=== PATIENT | female | born 1960 | race Caucasian/White ===

== ENCOUNTER → 2020-06-23 17:16 | Outpatient (CLI) | payer OTHER, SELFPAY ==
--- NOTE | ~2020-06-23 | DEXA_ITS ---
Bone Density Report Name: Elsa Arias Age: 59 Sex: Female Ethnicity: White Date of : 1960 Indication: postmenopausal; screening for osteoporosis; Referring Provider: REG CHANEY Study: Bone densitometry was performed. Exam Date: June 23, 2020 Accession number: [id number] Bone Density: Region BMD T-score Z-score Classification AP Spine (L1-L4) 1.055 0.1 1.3 Normal Femoral Neck (Left) 0.791 -0.5 0.6 Normal Total Hip (Left) 0.987 0.4 1.2 Normal Femoral Neck (Right) 0.767 -0.7 0.4 Normal Total Hip (Right) 0.992 0.4 1.2 Normal Total Hip Mean 0.990 0.4 1.2 Normal World Health Organization criteria for BMD impression classify patients as: Normal (T-score at or above -1.0), Osteopenia (T-score between -1.0 and -2.5), or Osteoporosis (T-score at or below -2.5). 10-year Fracture Risk: FRAX not reported because: All T-scores for Spine Total, Hip Total, Femoral Neck at or above -1.0 Previous Exams: Region Exam Age BMD T-score BMD Change BMD Change Date g/cm2 vs Baseline vs Previous AP Spine(L1-L4) 06/23/2020 59 1.055 0.1 -0.071* 0.007 06/20/2017 56 1.049 0.0 -0.077* -0.077* 03/02/2013 52 1.126 0.7 Total Hip(Left) 06/23/2020 59 0.987 0.4 0.018 0.051* 06/20/2017 56 0.936 -0.1 -0.033* -0.033* 03/02/2013 52 0.969 0.2 Total Hip(Right) 06/23/2020 59 0.992 0.4 -0.061* 0.053* 06/20/2017 56 0.939 0.0 -0.114* -0.114* 03/02/2013 52 1.053 0.9 *Denotes significance at 95% confidence level, LSC for AP Spine = 0.022 g/cm2, LSC for Total Hip = 0.027 g/cm2 Clinical Information Provided by Patient: Smokes Has used the following medications: Calcium Patient maximum height was 64 Menopause Age: 50 No regular weight bearing exercise Drinks caffeinated beverages Onset of menses at age 18 Number of children 2 Impression: The patient has normal bone mass. The patient has risk factors, including: smoking. No significant bone loss was observed. Discussion: BONE DENSITY IS ABOVE THE MINIMUM DESIRABLE LEVEL AT ALL SKELETAL SITES TESTED. This patient?s bone mineral density is above the minimum desirable level (T-score -1.0 or better) at all sites measured. The patient should follow a healthful lifestyle (good nutrition with adequate calcium and vitamin D, and appropriate weight-bearing exercise). Follow-U
--- NOTE | ~2020-06-23 | MM_ITS ---
EXAMINATION: MM scrn johny implant BI w dannie HISTORY: Screening mammogram TECHNIQUE: Craniocaudal and mediolateral oblique 3-D tomosynthesis images with implant displacement a nd synthetic 2-D images were generated. Craniocaudal and mediolateral oblique views of the breasts wi thout implant displacement were obtained using full field digital mammography. CAD analysis was submi tted and interpreted. COMPARISON: Comparison to multiple prior studies sequentially, with oldest reviewed study dated 03/03. BREAST PARENCHYMAL COMPOSITION: There are scattered areas of fibroglandular density. FINDINGS: There is no evidence of suspicious mass, calcification, or architectural distortion to sugg est malignancy in either breast. There has been no suspicious interval change. IMPRESSION: 1. No mammographic evidence of malignancy. 2. Recommend routine screening mammography in one year. BI-RADS Category 1: Negative Reviewed, dictated and finalized at location A.
== END ==
PROVIDERS: Visit Provider Obstetrics & Gynecology Gynecology
DX: Z12.31 Encounter for screening mammogram for malignant neoplasm of breast (principal); Z78.0 Asymptomatic menopausal state
CPT/HCPCS: 77063; 77067; 77080

== ENCOUNTER → 2021-04-04 02:20 | Outpatient (CLI) | payer OTHER, SELFPAY ==
[2021-04-04 16:44] LABS: SARS-CoV-2 RNA PCR Negative
== END ==
PROVIDERS: PCP Internal Medicine; Visit Provider Internal Medicine Gastroenterology
DX: Z01.812 Encounter for preprocedural laboratory examination (principal); Z20.822 Contact with and (suspected) exposure to COVID-19
CPT/HCPCS: C9803; U0003; U0005

== ENCOUNTER 2021-04-07 03:35 | Day surgery (SDC) | payer OTHER, SELFPAY ==
[2021-03-24 11:31] VITALS: BMI 27.6
[2021-04-07 07:45] VITALS: BP 105/77; PULSE 77; RESP 16; TEMP 37; O2SAT 100; BMI 27.7
--- NOTE | 2021-04-07 08:06 | PM.HPGS ---
History of Present Illness History of Present Illness Consent: Risks, benefits, and alternatives have been discussed and questions answered. Patient agrees to proceed with procedure. Chief complaint: neoplasm screening Narrative: Elsa Arias is a 60 year old female Referred for colon cancer screening. Her last colonoscopy was about 10 years ago Review of Systems Review of Systems: All systems reviewed & are unremarkable except as noted in HPI and below PMFSH Social History Social History Smoking packs per day: 1 Smoking cigarettes per day: 20.0 Smoking status: Current every day smoker Tobacco type: cigarettes Alcohol intake: current Alcohol use details: rarely Living arrangements: with family Spiritual care concerns: No Meds Home Medications and Allergies Home Medications Medication Instructions Recorded Confirmed Type biotin 2,500 mcg PO DAILY 03/24/21 04/07/21 History cholecalciferol (vitamin D3) 25 mcg PO DAILY 03/24/21 04/07/21 History [Vitamin D3] [id number]-oreg-capryl 1 cap PO DAILY 03/24/21 04/07/21 History vitamin B complex [B Complete] 1 tablet PO DAILY 03/24/21 04/07/21 History vitamin K2 40 mcg PO DAILY 03/24/21 04/07/21 History Allergies Allergy/AdvReac Type Severity Reaction Status Date / Time No Known Allergies Allergy Mild Verified 04/07/21 07:56 Vital Signs Vital Signs - 24 hr 04/07/21 07:45 Temperature 37.0 C Pulse Rate 77 Respiratory Rate 16 Blood Pressure 105/77 Pulse Oximetry 100 Exam Resp: Auscultation: clear to auscultation bilaterally Cardio: Rate: regular rate Rhythm: regular rhythm GI: GI Palp: Yes Soft to palpation and No Tenderness to palpation present (GI) Assessment and Plan Assessment and plan (1) Colon cancer screening: Code(s): Z12.11 - Encounter for screening for malignant neoplasm of colon Status: Acute Assessment and Plan: Colonoscopy with possible biopsy or polypectomy or cautery or injection of substances.
[2021-04-07] MEDS: LACTATED RINGERS 1,000 ML 150 ML IV CONT (08:08)
--- NOTE | 2021-04-07 08:09 | P.PNAN_ITS ---
Anes - Initial Pre Proc Eval Procedure: Operation Date: 04/07/21 09:00 Proposed Procedures p Screening Colonoscopy - Zelalem Zarate MD Date/Time: 04/07/21 08:09 Surgeon: Zelalem Zarate MD Pre Op Diagnosis: neoplasm screening Patient Data Age: 60 Gender: F Height: 1.63 m Weight: 73.3 kg Last Vital Signs Temp 37.0 C 04/07/21 07:45 Pulse 77 04/07/21 07:45 Resp 16 04/07/21 07:45 BP 105/77 04/07/21 07:45 Pulse Ox 100 04/07/21 07:45 Allergies Allergy/AdvReac Type Severity Reaction Status Date / Time No Known Allergies Allergy Mild Verified 04/07/21 07:56 Home Medications Medication Instructions Recorded Confirmed Type biotin 2,500 mcg PO DAILY 03/24/21 04/07/21 History cholecalciferol (vitamin D3) 25 mcg PO DAILY 03/24/21 04/07/21 History [Vitamin D3] [id number]-eodm-fziow-oreg-capryl 1 cap PO DAILY 03/24/21 04/07/21 History vitamin B complex [B Complete] 1 tablet PO DAILY 03/24/21 04/07/21 History vitamin K2 40 mcg PO DAILY 03/24/21 04/07/21 History Patient hx anesthesia problems: none Family hx anesthesia problems: none Results Review: All pre-operative results and documents have been reviewed as part of the pre-operative evaluation. [facility] Social History Social History Smoking packs per day: 1 Smoking cigarettes per day: 20.0 Smoking status: Current every day smoker Tobacco type: cigarettes Alcohol intake: current Alcohol use details: rarely Living arrangements: with family Spiritual care concerns: No Anes - Eval Final PreProcedure Day of Procedure 04/07/21 08:09 Patient weight: overweight Heart: regular rate and rhythm Lungs: clear to auscultation Airway: Mallampati scale class II Neurological: alert and oriented Last oral intake: >/= 8 hours ASA classification: II Emergent: no Anesthetic plan: proceed Anesthesia type and monitoring: general GIVS and standard monitoring Results Review: All pre-operative results and documents have been reviewed as part of the pre-operative evaluation. Informed Consent: The patient's anesthetic plan and its attendant risks and benefits were discussed with the patient/family/POA. Questions were solicited and answers provided to the satisfaction of the patient/family/POA.
[2021-04-07 09:07] VITALS: BP 100/57; PULSE 75; RESP 22; O2SAT 100
[2021-04-07 09:17] VITALS: BP 114/66; PULSE 86; RESP 19; O2SAT 98
[2021-04-07 09:27] VITALS: BP 117/79; PULSE 71; RESP 16; O2SAT 99
== END 2021-04-07 09:31 | disposition home or self-care (01) ==
PROVIDERS: PCP Internal Medicine; Visit Provider Internal Medicine Gastroenterology
PROC: 0DJD8ZZ Inspection of Lower Intestinal Tract, Via Natural or Artificial Opening Endoscopic (ICD-10-PCS; CPT 45378; principal; 2021-04-07 09:00)
DX: Z12.11 Encounter for screening for malignant neoplasm of colon (principal); F17.210 Nicotine dependence, cigarettes, uncomplicated
CPT/HCPCS: 45378; C9803; J2704; J7120; U0003; U0005

== ENCOUNTER → 2021-06-30 15:21 | Outpatient (CLI) | payer OTHER, SELFPAY ==
--- NOTE | ~2021-06-30 | MM_ITS ---
EXAMINATION: MM scrn johny implant BI w dannie HISTORY: Screening mammogram TECHNIQUE: Craniocaudal and mediolateral oblique 3-D tomosynthesis images with implant displacement a nd synthetic 2-D images were generated. Craniocaudal and mediolateral oblique views of the breasts wi thout implant displacement were obtained using full field digital mammography. CAD analysis was submi tted and interpreted. COMPARISON: Comparison to multiple prior studies sequentially, with oldest reviewed study dated 03/03. BREAST PARENCHYMAL COMPOSITION: Breast composed of scattered areas of fibroglandular density FINDINGS: There are bilateral subpectoral saline implants. There is no evidence of suspicious mass, c alcification, or architectural distortion to suggest malignancy in either breast. There has been no s uspicious interval change. IMPRESSION: 1. No mammographic evidence of malignancy. 2. Recommend routine screening mammography in one year. BI-RADS Category 1: Negative Reviewed, dictated and finalized at location A.
== END ==
PROVIDERS: PCP Internal Medicine; Visit Provider Obstetrics & Gynecology Gynecology
DX: Z12.31 Encounter for screening mammogram for malignant neoplasm of breast (principal)
CPT/HCPCS: 77063; 77067

== ENCOUNTER → 2022-07-05 15:06 | Outpatient (CLI) | payer OTHER, SELFPAY ==
--- NOTE | ~2022-07-05 | MM_ITS ---
EXAMINATION: MM scrn johny implant BI w dannie HISTORY: Screening mammogram TECHNIQUE: Craniocaudal and mediolateral oblique 3-D tomosynthesis images with implant displacement a nd synthetic 2-D images were generated. Craniocaudal and mediolateral oblique views of the breasts wi thout implant displacement were obtained using full field digital mammography. CAD analysis was submi tted and interpreted. COMPARISON: 06/30/2021, 06/23/2020, 07/08/2018 BREAST PARENCHYMAL COMPOSITION: There are scattered areas of fibroglandular density. FINDINGS: Bilateral intramammary lymph nodes are noted. There is no evidence of suspicious mass, calc ification, or architectural distortion to suggest malignancy in either breast. There has been no susp icious interval change. IMPRESSION: 1. No mammographic evidence of malignancy. 2. Recommend routine screening mammography in one year. BI-RADS Category 2: Benign finding(s). Reviewed, dictated and finalized at location A.
== END ==
PROVIDERS: PCP Obstetrics & Gynecology Gynecology; Visit Provider Obstetrics & Gynecology Gynecology
DX: Z12.31 Encounter for screening mammogram for malignant neoplasm of breast (principal)
CPT/HCPCS: 77063; 77067

== ENCOUNTER 2023-07-31 15:22 | Outpatient (CLI) | payer OTHER, SELFPAY ==
--- NOTE | ~2023-07-31 | MM_ITS ---
EXAMINATION: MM scrn johny implant BI w dannie HISTORY: Screening mammogram TECHNIQUE: Craniocaudal and mediolateral oblique 3-D tomosynthesis images with implant displacement a nd synthetic 2-D images were generated. Craniocaudal and mediolateral oblique views of the breasts wi thout implant displacement were obtained using full field digital mammography. CAD analysis was submi tted and interpreted. COMPARISON: Comparison to multiple prior studies sequentially, with oldest reviewed study dated 02/2016. BREAST PARENCHYMAL COMPOSITION: Not dense: There are scattered areas of fibroglandular density. FINDINGS: There is no evidence of suspicious mass, calcification, or architectural distortion to sugg est malignancy in either breast. There has been no suspicious interval change. IMPRESSION: 1. No mammographic evidence of malignancy. 2. Recommend routine screening mammography in one year. BI-RADS Category 1: Negative Reviewed, dictated and finalized at location B.
== END 2023-07-31 15:23 ==
PROVIDERS: PCP Obstetrics & Gynecology Gynecology; Visit Provider Obstetrics & Gynecology Gynecology
DX: Z12.31 Encounter for screening mammogram for malignant neoplasm of breast (principal)
CPT/HCPCS: 77063; 77067

== ENCOUNTER 2024-09-04 15:05 | Outpatient (CLI) | payer OTHER, SELFPAY ==
--- NOTE | ~2024-09-04 | MM_ITS ---
EXAMINATION: MM scrn johny implant BI w dannie HISTORY: Screening mammogram TECHNIQUE: Craniocaudal and mediolateral oblique 3-D tomosynthesis images with implant displacement a nd synthetic 2-D images were generated. Craniocaudal and mediolateral oblique views of the breasts wi thout implant displacement were obtained using full field digital mammography. CAD analysis was submi tted and interpreted. COMPARISON: Comparison to multiple prior studies sequentially, with oldest reviewed study dated 04/2017. BREAST PARENCHYMAL COMPOSITION: Not dense: There are scattered areas of fibroglandular density. FINDINGS: Stable low-density mass upper outer quadrant of the left breast, consistent with intramamma ry lymph node. There is no evidence of suspicious mass, calcification, or architectural distortion to suggest malignancy in either breast. There has been no suspicious interval change. IMPRESSION: 1. No mammographic evidence of malignancy. 2. Recommend routine screening mammography in one year. BI-RADS Category 1: Negative Reviewed, dictated and finalized at location B.
== END 2024-09-04 15:06 | disposition home or self-care (01) ==
PROVIDERS: PCP Nurse Practitioner; Visit Provider Nurse Practitioner
DX: Z12.31 Encounter for screening mammogram for malignant neoplasm of breast (principal); Z98.82 Breast implant status
CPT/HCPCS: 77063; 77067

== ENCOUNTER 2024-11-27 15:29 | Outpatient (CLI) | payer OTHER, SELFPAY ==
--- NOTE | ~2024-11-27 | DEXA_ITS ---
Bone Density Report Name: TITO COLE Age: 64 Sex: Female Ethnicity: White Date of : 1960 Indication: postmenopausal; screening for osteoporosis; Referring Provider: Alberto, Lyla Study: Bone densitometry was performed. Exam Date: November 27, 2024 Accession number: [id number] Bone Density: Region BMD T-score Z-score Classification AP Spine(L1-L4) 0.956 -0.8 0.7 Normal Femoral Neck (Left) 0.739 -1.0 0.4 Normal Total Hip (Left) 0.865 -0.6 0.4 Normal Femoral Neck (Right) 0.766 -0.8 0.6 Normal Total Hip (Right) 0.893 -0.4 0.7 Normal Total Hip Mean 0.879 -0.5 0.6 Normal World Health Organization criteria for BMD impression classify patients as: Normal (T-score at or above -1.0), Osteopenia (T-score between -1.0 and -2.5), or Osteoporosis (T-score at or below -2.5). 10-year Fracture Risk: FRAX not reported because: All T-scores for Spine Total, Hip Total, Femoral Neck at or above -1.0 Previous Exams: -- Region Exam Age BMD T-score BMD Change BMD Change Date g/cm2 vs Baseline vs Previous -- AP Spine (L1-L4) 11/27/2024 64 0.956 -0.8 -15.1%* -9.4%* 06/23/2020 59 1.055 0.1 -6.3%* 0.6% 06/20/2017 56 1.049 0.0 -6.9%* -6.9%* 03/02/2013 52 1.126 0.7 Total Hip(Left) 11/27/2024 64 0.865 -0.6 -10.8%* -12.4%* 06/23/2020 59 0.987 0.4 1.9% 5.5%* 06/20/2017 56 0.936 -0.1 -3.4%* -3.4%* 03/02/2013 52 0.969 0.2 Total Hip(Right) 11/27/2024 64 0.893 -0.4 -15.3%* -10.0%* 06/23/2020 59 0.992 0.4 -5.8%* 5.6%* 06/20/2017 56 0.939 0.0 -10.8%* -10.8%* 03/02/2013 52 1.053 0.9 -- *Denotes significance at 95% confidence level, LSC for AP Spine = 0.022 g/cm2, LSC for Total Hip = 0.027 g/cm2 Clinical Information Provided by Patient: Smokes Has used the following medications: Vitamin D Patient maximum height was 64 Menopause Age: 50 No regular weight bearing exercise Does not regularly consume dairy products Drinks caffeinated beverages Onset of menses at age 17 Number of children 2 Impression: The patient has normal bone mass. The patient has risk factors, including: smoking. The BMD for the AP Spine (L1-L4) decreased, changing by -9.4% since the last DXA exam. The BMD for the Total Hip(Left) decreased, changing by -12.4% since the last DXA exam. The BMD for the Total Hip(Right) decreased, changing by -10.0% since the last DXA exam. Discussion: BONE DENSITY IS ABOVE THE MINIMUM DESIRABLE LEVEL AT ALL SKELETAL SITES TESTED. This patient?s bone mineral density is above the minimum desirable level (T-score -1.0 or better) at all sites measured. The patient should follow a healthful lifestyle (good nutrition with adequate calcium and vitamin D, and appropriate weight-bearing exercise). Follow-Up: Consider repeating this study in 3 to 4 years to reassess this patient's status, or sooner if there is some new clinical indication. Reported by: DEJUAN on 11/27/2024 3:48:00 PM. Reviewed, dictated and finalized at location A.
== END 2024-11-27 15:30 | disposition home or self-care (01) ==
LOC: MICIMG 15:29
PROVIDERS: PCP Nurse Practitioner; Visit Provider Nurse Practitioner
DX: Z78.0 Asymptomatic menopausal state (principal)
CPT/HCPCS: 77080